=== PATIENT | female | born 1990 | race American Indian/Alaskan Native ===

== ENCOUNTER 2021-02-06 12:01 | Emergency (ER) | payer MEDICAID, OTHER ==
[2021-02-06 12:15] VITALS: BP 125/81
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
== END 2021-02-06 13:40 | disposition home or self-care (01) ==
LOC: ED 12:01
DX: M79.18 Myalgia, other site (principal); Z79.899 Other long term (current) drug therapy; V49.59XA Passenger injured in collision with other motor vehicles in traffic accident, initial encounter; Y92.410 Unspecified street and highway as the place of occurrence of the external cause; Y93.89 Activity, other specified; Y99.8 Other external cause status
CPT/HCPCS: 99282

== ENCOUNTER 2021-05-30 21:27 | Emergency (ER) | payer SELFPAY ==
[2021-05-30] MEDS ORDERED: METOCLOPRAMIDE 10 MG/2 ML INJ IV ONE (21:41)
[2021-05-30] MEDS ORDERED: SODIUM CHLORIDE 0.9% 1000 ML 1,000 ML IV ONE (21:41)
--- NOTE | 2021-05-30 21:42 | Emergency Department Report ---
ED N/V/D HPI - General Chief complaint: Nausea/Vomiting/Diarrhea Stated complaint: NAUSEA,VOMITING X 1 WK Time Seen by Provider: 05/30/21 21:34 Source: patient, EMS Mode of arrival: Stretcher Limitations: No Limitations - History of Present Illness Initial comments: Patient presents by ambulance with a 2-week history of intermittent nausea and vomiting with abdominal pain. She has had no hematemesis or coffee-ground emesis. She vomits multiple times a day. She always feels queasy. She reports having some generalized abdominal cramps. There is no diarrhea associate with this. She has had a cough which is been producing a yellowish phlegm. She has had subjective fevers and chills. She has had sick contacts with similar symptoms but no one with coronavirus. Patient denies recent travel. She has not been out of the country. She does not believe that she is currently. She has no dysuria or frequency. - Related Data Previous Rx's Medication Instructions Recorded Last Taken Type Naproxen [EC-Naprosyn] 500 mg PO BID PRN #14 tablet. 02/06/21 Unknown Rx methOCARBAMOL [Robaxin TAB] 500 mg PO BID PRN #14 tab 02/06/21 Unknown Rx Hyoscyamine Subl [Levsin Sl 0.125 0.125 mg SL Q6HR PRN #20 tab 05/30/21 Unknown Rx TAB] Ondansetron [Zofran ODT TAB] 8 mg PO Q8HR PRN #20 tab.rapdis 05/30/21 Unknown Rx Allergies Allergy/AdvReac Type Severity Reaction Status Date / Time No Known Allergies Allergy Unverified 07/17/14 13:01 ED Review of Systems ROS: Stated complaint: NAUSEA,VOMITING X 1 WK Other details as noted in HPI ED Past Medical Hx - Past Medical History Previous Medical History?: No Additional medical history: hx: anemia - Surgical History Past Surgical History?: No - Social History Smoking Status: Never Smoker Substance Use Type: Alcohol - Medications Home Medications: Home Medications Medication Instructions Recorded Confirmed Last Taken Type Naproxen [EC-Naprosyn] 500 mg PO BID PRN #14 tablet. 02/06/21 Unknown Rx methOCARBAMOL [Robaxin TAB] 500 mg PO BID PRN #14 tab 02/06/21 Unknown Rx Hyoscyamine Subl [Levsin Sl 0.125 0.125 mg SL Q6HR PRN #20 tab 05/30/21 Unknown Rx TAB] Ondansetron [Zofran ODT TAB] 8 mg PO Q8HR PRN #20 tab.rapdis 05/30/21 Unknown Rx ED Physical Exam - General Limitations: No Limitations ED Course Vital Signs 05/30/21 21:28 Temperature 98.9 F Pulse Rate 102 H Respiratory 18 Rate Blood Pressure 125/93 [Right] O2 Sat by Pulse 100 Oximetry - Reevaluation(s) Reevaluation #1: 05/30/21 21:42 5-EMS was met. IV and labs ordered. Old records reviewed. Reevaluation #2: 05/30/21 23:04 Labs are noted. Patient was not . Chest x-ray was noted. There is no evidence of pneumonia or coronavirus. ED Medical Decision Making - Lab Data Result diagrams: 05/30/21 21:46 05/30/21 21:46 - Radiology Data Radiology results: image reviewed - Medical Decision Making Patient presented with cough associate with GI symptoms. She is not so ectopic has been excluded. She does not have peritoneal findings. She does not have any significant abdominal tenderness that would suggest bowel obstruction, peritonitis, perforation, or abscess. She certainly does not appear to be jaundiced. I do not believe this represents hepatitis. She does not have significant epigastric pain or intractable vomiting that would suggest acute pancreatitis. Radiographically, there is no pneumonia. She does not have radiographic findings suggestive of coronavirus. She was treated symptomatically and referred for outpatient evaluation. Critical Care Time: No Critical care attestation.: If time is entered above; I have spent that time in minutes in the direct care of this critically ill patient, excluding procedure time. ED Disposition Clinical Impression: Abdominal cramps, Cough Nausea & vomiting Qualifiers: Vomiting type: unspecified Vomiting Intractability: non-intractable Qualified Code(s): R11.2 - Nausea with vomiting, unspecified Disposition: 01 HOME / SELF CARE / HOMELESS Is pt being admited?: No Condition: Stable Instructions: Abdominal Pain, Adult, Cough, Adult, [id number], Nausea and Vomiting, Adult Additional Instructions: Have a bland diet. Drink plenty water. Return for problems. Follow-up with your regular doctor for recheck. If you develop new symptoms, please return. Prescriptions: Hyoscyamine Subl [Levsin Sl 0.125 TAB] 0.125 mg SL Q6HR PRN #20 tab PRN Reason: Pain, Moderate (4-6) Ondansetron [Zofran ODT TAB] 8 mg PO Q8HR PRN #20 tab.rapdis PRN Reason: Nausea Referrals: FABRICIO WERNERUNDERWOOD MD DEMAR [Primary Care Provider] - 3-5 Days
[2021-05-30 21:57] LABS: Hematocrit 39.2 % (30.3-42.9); Hemoglobin 12.9 gm/dl (10.1-14.3); Mean Corpuscular HGB Conc 33 % (30-34); Mean Corpuscular Volume 90 fl (79-97); Platelet Count 336 K/mm3 (140-440); Red Blood Count 4.35 M/mm3 (3.65-5.03); Red Cell Distribution Width 12.7 % (13.2-15.2)
[2021-05-30 22:18] LABS: BUN/Creatinine Ratio 14; Blood Urea Nitrogen 11 mg/dL (7-17); Calcium 9.5 mg/dL (8.4-10.2); Hemolysis Index 26
--- NOTE | 2021-05-30 23:11 | XRay Report ---
CHEST PA AND LATERAL VIEWS INDICATION: cough, fever. COMPARISON: None. FINDINGS: Support devices: None. Heart: Within normal limits. Lungs/Pleura: No acute pulmonary or pleural findings. IMPRESSION: 1. No acute findings. Signer Name: Karl Mckeon MD Signed: 05/30/2021 11:07 PM Workstation Name: [id number]
[2021-05-30 23:57] VITALS: BP 115/84
== END 2021-05-30 23:20 | disposition home or self-care (01) ==
LOC: ED 21:27
DX: R11.2 Nausea with vomiting, unspecified (principal); R10.9 Unspecified abdominal pain; R05.9 Cough, unspecified; Z72.89 Other problems related to lifestyle
CPT/HCPCS: 36415; 71046; 80048; 84703; 85027; 96361; 96374; 99284; J2765; J7030